=== PATIENT | female | born 1970 | race Caucasian/White ===

== ENCOUNTER 2024-01-20 16:54 | Emergency (ER) | payer OTHER ==
[~2024-01-20] VITALS: Ht 160 cm; Wt 74.8 kg
[2024-01-20 17:23] VITALS: BP_SYST 118; PULSE 56; RESP 18; TEMP 98.3; O2SAT 98
[2024-01-20 18:03] LABS: BILIRUBIN,URINE NEGATIVE (NEGATIVE); CLARITY/URINE CLEAR (CLEAR); COLOR,URINE YELLOW (YELLOW); GLUCOSE,URINE NEGATIVE (NEGATIVE); KETONES,URINE NEGATIVE (NEGATIVE); LEUKOCYTE ESTERASE ,URINE TRACE (NEGATIVE); NITRITE, URINE NEGATIVE (NEGATIVE); PROTEIN URINE NEGATIVE (NEGATIVE); UROBILINOGEN,URINE 0.2 (0.2-1.0)
[2024-01-20 18:09] LABS: BLOOD, URINE TRACE (NEGATIVE)
[2024-01-20 18:19] LABS: BACTERIA,URINE FEW /HPF (None Seen); WBC,URINE 0-3 /HPF (0-3)
[2024-01-20] MEDS: KETOROLAC TROMETHAMINE 30 MG VIAL IM ONE (18:28)
[2024-01-20] MEDS: LIDOCAINE PATCH 5% 1 EA TP ONE (21:42)
[2024-01-20 21:55] VITALS: BP_SYST 102; PULSE 61; RESP 18; TEMP 97; O2SAT 97
== END 2024-01-20 21:56 | disposition home or self-care (01) ==
LOC: SED 16:54
DX: S39.012A Strain of muscle, fascia and tendon of lower back, initial encounter (principal); R10.9 Unspecified abdominal pain; X58.XXXA Exposure to other specified factors, initial encounter; Y93.89 Activity, other specified; Y92.89 Other specified places as the place of occurrence of the external cause; Y99.8 Other external cause status
CPT/HCPCS: 99285; 74176; 81001; 96372; J1885; 81000; 81015